=== PATIENT | female | born 1975 | race Two or more races ===

== ENCOUNTER → 2017-08-23 | Outpatient (CLI) | payer OTHER | LOC: CIMAGING 16:03 | PROVIDERS: ATTEND Internal Medicine | DX: Z03.89 Encounter for observation for other suspected diseases and conditions ruled out (principal) | CPT/HCPCS: 76770-PO ==

== ENCOUNTER → 2018-09-17 | Outpatient (CLI) | payer OTHER | LOC: CIMAGING 08:55 | PROVIDERS: ATTEND Internal Medicine | DX: Z12.31 Encounter for screening mammogram for malignant neoplasm of breast (principal) ==